=== PATIENT | male | born 1980 | race Caucasian/White ===

== ENCOUNTER 2023-02-11 13:54 | Emergency (ER) | payer MEDICAID ==
[~2023-02-11] VITALS: Ht 180.3 cm; Wt 75.7 kg
[2023-02-11 14:25] VITALS: O2SAT 99
[2023-02-11] MEDS ORDERED: KETOROLAC 30MG/ML VIAL IM ONE (15:15)
[2023-02-11] MEDS ORDERED: ACET-2708 MT (16:22)
[2023-02-11 18:19] VITALS: BP 124/87; PULSE 74; RESP 16; TEMP 98.2
== END 2023-02-11 18:20 | disposition home or self-care (01) ==
LOC: ER 15:01
DX: S92.511A Displaced fracture of proximal phalanx of right lesser toe(s), initial encounter for closed fracture (principal); X58.XXXA Exposure to other specified factors, initial encounter; Y93.89 Activity, other specified; Y92.89 Other specified places as the place of occurrence of the external cause; Y99.8 Other external cause status
CPT/HCPCS: 73630; 96372; 99283; J1885; Z7610